=== PATIENT | female | born 1965 | race Two or more races ===

== ENCOUNTER 2022-11-21 01:40 | Inpatient (IN) | payer OTHER ==
[~2022-11-21] VITALS: Ht 154.9 cm; Wt 111.6 kg
[2022-11-21] MEDS ORDERED: VASOTEC20 M1 (01:51)
--- NOTE | 2022-11-21 01:57 | NUR ---
PACIENTE ALERTA Y ORIENTADA X3. REFIERE VENIR POR DOLOR EN EL FLANCO DERECHO, VOMITOS Y DIARREAS DESDE TAWANNA.
--- NOTE | 2022-11-21 02:57 | NUR ---
PTE ALERTA Y ORIENTADA X3 EN RC CON BARANDAS ELEVADAS. SE BANDAR MUESTRAS DE LAB. BAJO MEDIDAS ASEPTICAS. SE CANALIZA AREA DRISS DE EDEMA Y DE ENROJECIMIENTO. SE ADMINISTRAN MEDICAMENTOS JENIFER ORDEN MEDICA BAJO MEDIDAS ASEPTICAS. SE EDUCA A PTE SOBRE MANTENERSE EN NPO POR ESTUDIO DE SONOGRAMA ABDOMINAL. PTE MANEJADO POR MIKE.
[2022-11-21 03:29] LABS: HEMATOCRIT 38.9 % (36.0-45.00); HEMOGLOBIN 12.6 g/dL (12.0-15.00); MEAN CORPUSCULAR HEMOGLOBIN 26.7 pg (27.00-32.0); MEAN CORPUSCULAR HGB CONC 32.5 g/dl (32.0-36.0); PLATELET COUNT 335 K/uL (150-450); RED BLOOD COUNT 4.74 M/uL (4.00-6.00); RED CELL DISTRIBUTION WIDTH 14.5 % (11.5-14.5)
[2022-11-21 03:51] LABS: INR 0.96; PROTHROMBIN TIME 10.1 SECONDS (9.0-11.5)
[2022-11-21 03:54] LABS: ALBUMIN 3.7 gm/dL (3.4-5.0); BILIRUBIN TOTAL 0.3 mg/dL (0.3-1.2); BILIRUBIN,CONJUGATED 0.12 mg/dL (0.0-0.2); BILIRUBIN,UNCONJUGATED 0.18 mg/dL (0.0-0.6); CALCIUM 9.6 mg/dL (8.5-10.1); CREATININE SERUM 0.7 mg/dL (0.55-1.02); GFR 86.87; GLOBULINA 4.4 G/DL (2.4-3.5); POTASSIUM 4.15 mEq/L (3.5-5.1); TOTAL PROTEIN 8.1 gm/dL (6.4-8.2)
[2022-11-21 07:51] LABS: URINE APPEARANCE Clear; URINE BILIRRUBIN Negative (NEGATIVE); URINE BLOOD Negative; URINE COLOR Yellow; URINE GLUCOSE Negative (NEGATIVE); URINE LEUKOCYTE Negative; URINE NITRATE Negative; URINE PROTEIN Negative (NEGATIVE); URINE UROBILINOGEN 0.2 E.U./dl
[2022-11-21 07:58] LABS: URINE BACTERIA 26.4 uL (0.0-1933); URINE EPITHELIAL CELLS 3.2 uL (0.0-38.8); URINE RBC 2.5 uL (0.0-20.8); URINE WBC 2.6 uL (0.0-23.2)
--- NOTE | 2022-11-21 07:58 | NUR ---
SE RECIBE PTE FEMENINA DE 57 YRS MARY CONCIENTE Y TRANQUILA EN COMPANIA DE FAMILIAR. PTE SE OBSERVA CON R/L A 150ML HRS SE MANTIENE DRISS DE DOLOR AL MOMENTO Y PTE CONSULTADA CON EL DR, TAVERAS LA CUAL FUE EVALUADA POR EL.SE LE BRUCE S/V LA CUAL SE DOCUEMTA. SE MANTIENE BAJO OBSERVACION.
--- NOTE | 2022-11-21 14:15 | NUR ---
PTE AL MOMENTO NO TIENE DOLOR . PTE DESCNSANDO.
[2022-11-22 08:32] LABS: ALBUMIN 3.1 gm/dL (3.4-5.0); BILIRUBIN TOTAL 0.7 mg/dL (0.3-1.2); BILIRUBIN,CONJUGATED 0.14 mg/dL (0.0-0.2); BILIRUBIN,UNCONJUGATED 0.56 mg/dL (0.0-0.6); CALCIUM 8.2 mg/dL (8.5-10.1); CHOL HDL RATIO 4.8 (0-5.0); CREATININE SERUM 0.57 mg/dL (0.55-1.02); GFR 110.12; GLOBULINA 3.2 G/DL (2.4-3.5); POTASSIUM 3.69 mEq/L (3.5-5.1); TOTAL PROTEIN 6.3 gm/dL (6.4-8.2)
[2022-11-22 08:34] LABS: C-REACTIVE PROTEIN 1.41 MG/DL (0.00-0.29)
[2022-11-22 08:35] LABS: URINE APPEARANCE Clear; URINE BILIRRUBIN Negative (NEGATIVE); URINE BLOOD Negative; URINE COLOR Yellow; URINE GLUCOSE Negative (NEGATIVE); URINE LEUKOCYTE Negative; URINE NITRATE Negative; URINE PROTEIN Negative (NEGATIVE)
[2022-11-22 08:42] LABS: URINE BACTERIA 12.5 uL (0.0-1933); URINE WBC 2.3 uL (0.0-23.2)
[2022-11-22 09:03] LABS: HEMATOCRIT 37.1 % (36.0-45.00); HEMOGLOBIN 12.4 g/dL (12.0-15.00); MEAN CELL VOLUME 80.9 fL (80.00-100.00); MEAN CORPUSCULAR HEMOGLOBIN 27.1 pg (27.00-32.0); MEAN CORPUSCULAR HGB CONC 33.5 g/dl (32.0-36.0); PLATELET COUNT 280 K/uL (150-450); RED BLOOD COUNT 4.58 M/uL (4.00-6.00); RED CELL DISTRIBUTION WIDTH 14.6 % (11.5-14.5)
[2022-11-22 09:13] LABS: INR 0.99; PARTIAL THROMBOPLASTIN TIME 26.5 SECONDS (22.0-34.0); PROTHROMBIN TIME 10.4 SECONDS (9.0-11.5)
[2022-11-22 09:45] LABS: ERYTHROCYTE SEDIMENTATION RATE 38 mm/hr
== END 2022-11-24 17:56 | disposition home or self-care (01) | DRG 446 ==
LOC: ER 01:40 → MEDJ 17:11
PROVIDERS: General Practice; ADMIT Internal Medicine; ATTEND Internal Medicine
DX: K80.20 Calculus of gallbladder without cholecystitis without obstruction (principal); I10 Essential (primary) hypertension; Z20.822 Contact with and (suspected) exposure to COVID-19